=== PATIENT | female | born 1945 | race Caucasian/White ===

== ENCOUNTER 2019-04-23 12:06 | Inpatient (IN) ==
[2019-04-23] MEDS ORDERED: 0.9 % SODIUM CHLORIDE 1,000 ML IV ONE (12:11)
--- NOTE | 2019-04-23 12:22 | Emergency Department Note ---
Nausea/Vomiting/Diarrhea HPI - General Chief complaint: Nausea/Vomiting/Diarrhea Stated complaint: nausea, vomitting Time Seen by Provider: 04/23/19 12:19 Source: patient Mode of arrival: wheelchair Limitations: no limitations - History of Present Illness HPI Narrative: 74-year-old female patient presents to emergency department via POV with chief complaint of profuse nausea, vomiting, and diarrhea 5 days. She denies any hematemesis or hematochezia. She describes her bowel movements is watery/slight brown. She denies any other sick contacts at home. She denies ingesting any bowel or suspicious foods. She denies considerable abdominal pain/cramping. 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 She contacted her medical clinic and they referred her to the emergency department for evaluation. She denies any fever, sweats, chills. She admits to mild runny nose but denies cough or sinus congestion. She denies overt shortness of breath. She admits to orthopnea and uses a wedge to sleep. She denies retrosternal crushing chest pain or palpitations. She denies any focal weakness. She admits to bilateral lower extremity tenderness that has been ongoing since an injury several months ago. - Related Data Home Medications Medication Instructions Recorded Confirmed Insulin Glargine,Hum.rec.anlog 1 unit SQ DAILY 01/31/19 01/31/19 [Lantus Solostar] Insulin Lispro [HumaLOG] 1 unit SQ DAILY 01/31/19 01/31/19 Potassium Chloride [Kdur] 10 meq PO DAILY 01/31/19 01/31/19 Pramipexole Di-HCl [Mirapex] 0.25 mg PO DAILY 01/31/19 01/31/19 Spironolactone [Aldactone] 50 mg PO DAILY 01/31/19 01/31/19 Torsemide [Demadex] 20 mg PO DAILY 01/31/19 01/31/19 Warfarin [Coumadin] 5 mg PO DAILY 01/31/19 01/31/19 Allergies Allergy/AdvReac Type Severity Reaction Status Date / Time pregabalin [From LYRICA] Allergy Severe COULDN'T Verified 01/31/19 14:37 FUNCTION Amoxicillin Allergy Intermediate Verified 01/31/19 14:38 gabapentin [From Neurontin] AdvReac Intermediate Verified 01/31/19 14:38 codeine AdvReac Unknown Nausea Verified 01/31/19 14:37 epinephrine AdvReac Unknown Hypertensio Verified 01/31/19 14:37 n furosemide [From LASIX] AdvReac Unknown DEPLETES Verified 01/31/19 14:37 KCL VERY FAST, EVEN WITH SUPPLEMENTS Review of Systems All systems ED: reviewed and negative except as stated. Past Medical History - Past Medical History Medical history: Reports: atrial fibrillation, CHF - Social History smoking status: Never smoker Physical Exam Limitations: no limitations General appearance: alert, in no apparent distress Head: atraumatic Eye: Present: normal appearance, PERRL, EOMI. Absent: scleral icterus, co njunctival injection ENT: Present: normal oropharynx, mucous membranes moist Neck: Present: trachea midline. Absent: lymphadenopathy, thyromegaly Respiratory: Present: normal lung sounds bilaterally. Absent: respiratory dis tress, wheezes, stridor, accessory muscle use, prolonged expiratory phase Cardiovascular: Present: regular rate, normal rhythm. Absent: systolic murmur, diastolic murmur Abdominal: Present: soft, hyperactive bowel sounds (to the right lower quadrant ). Absent: distention, tenderness, guarding, rebound, rigidity, organomegaly, mass Extremities: Present: tenderness (chest bilateral.). Absent: pedal edema, pretibial edema, calf tenderness Neurological: Present: alert, oriented X3 Psychiatric: Present: normal affect, normal mood Skin: Present: warm, dry Course Course Narrative: Patient was brought into the emergency department and a history of physical exam was performed. IV was established and laboratory studies were drawn. Normal saline was started at 128 mL/hour. A review of her laboratory studies show the following: CBC monocyte percent elevated 16.6, monocyte #1.8, all others the normal limits. CMP CO2 critically low at 10, sodium 130, anion gap elevated at 21, BUN 76, creatinine 3.5, GFR calculated at 12, blood sugar 126, all other normal limits. Troponin 0.03. ProBNP 2768. I discussed the case briefly with my collaborative physician (Dr. Romo) at this time he recommended additional laboratory studies. We will order a lactic acid level, urine for culture, stool for fecal leukocytes, chest x-ray, and beta hydroxybutyrate. Upon reevaluation patient says she is feeling about the same. She complains of some mild discomfort to her left upper abdomen. She has not vomited or had an episode of diarrhea since being in the emergency department. Additional laboratory studies were reviewed showing the following: Beta hydroxybutyrate 0.12. Lactic acid 1.3. Chest x-ray read as normal. Fecal leukocytes as showing rare WBC. Predominant polys. With the patient's low CO2 level and likely metabolic acidosis secondary to vomiting and diarrhea it seems prudent that she be admitted to the hospital for further evaluation and management. I reached out to the hospitalist service (Dr. Bowden) about the patient's condition. At this time he has accepted the patient. She remained hemodynamically stable throughout her entire time in the emergency department as being transferred to floor in good condition. All treatment decisions and orders will be carried out by Dr. Bowden moving forward. Vital Signs Temperature 97.3 F 04/23/19 12:06 Pulse Rate 81 04/23/19 12:06 Respiratory Rate 18 04/23/19 12:06 Blood Pressure 106/78 04/23/19 12:06 Pulse Oximetry (%) 96 04/23/19 12:06 Temperature 97.3 F 04/23/19 12:06 Pulse Rate 70 04/23/19 18:17 Respiratory Rate 17 04/23/19 18:17 Blood Pressure 144/65 04/23/19 18:17 Pulse Oximetry (%) 96 04/23/19 18:17 Nausea/Vomiting/Diarrhea - Lab Data Lab results reviewed: Yes I reviewed the patient's lab results. Result diagrams: 04/23/19 12:20 04/23/19 12:20 Lab Results 04/23/19 04/23/19 04/23/19 Range/Units 12:20 12:20 12:20 WBC 11.0 (4.5-11.0) K/mcL RBC 4.48 (4.00-5.20) M/mcL Hgb 13.2 (12.0-15.0) g/dL Hct 40.0 (36.0-48.0) % MCV 89.2 (80.0-100.0) fL MCH 29.5 (26.0-34.0) pg MCHC 33.1 (31.0-36.0) g/dL RDW 14.0 (11.5-14.5) % Plt Count 233 (140-440) K/mcL MPV 8.3 (7.4-10.4) fL Gran % 67.0 (38.0-78.0) % Lymph % (Auto) 16.2 (15.5-49.0) % [place] % (Auto) 16.6 H (1.0-12.0) % Eos % (Auto) 0 (0.0-7.0) % Baso % (Auto) 0.2 (0.0-2.0) % Gran # 7.4 (1.8-8.0) K/mcL Lymph # (Auto) 1.8 (1.5-4.8) K/mcL [place] # (Auto) 1.8 H (0.1-0.9) K/mcL Eos # (Auto) 0 (0.0-0.7) K/mcL Baso # (Auto) 0 (0.0-0.3) K/mcL VBG Lactic Acid (0.5-2.0) mmol/L Sodium 130 L (133-145) mmol/L Potassium 4.7 (3.3-5.1) mmol/L Chloride 99 (96-108) mmol/L Carbon Dioxide 10 L* (22-30) mmol/L Anion Gap 21.0 H (8-16) BUN 76 H (8-23) mg/dl Creatinine 3.5 H (0.6-1.1) mg/dl GFR Calculation 12 Glucose 126 H (70-105) mg/dL Calcium 8.6 (8.6-10.4) mg/dl Total Bilirubin 0.3 (0.0-1.0) mg/dL AST 16 (0-37) U/l ALT 19 (0-40) U/l Alkaline Phosphatase 68 (39-117) U/L Troponin T 0.03 (0-0.03) ng/ml NT-Pro-B Natriuret Pep 2768.0 H (0-450) pg/ml Total Protein 7.2 (5.9-8.4) gm/dL Albumin 4.1 (3.2-5.2) gm/dL Globulin 3.1 (2.2-3.7) gm/dL Albumin/Globulin Ratio 1.3 (1.0-2.3) Beta-Hydroxybutyrate (< 0.27) mmol/L Urine Color Urine Appearance Urine pH (5.0-9.0) Ur Specific [place] (1.000-1.035) Urine Protein (NEG) mg/dL Urine Glucose (UA) (NEG) mg/dL Urine Ketones (NEG) mg/dL Urine Occult Blood (<0.03) mg/dL Urine Nitrate (NEG) Urine Bilirubin (NEG) mg/dL Urine Urobilinogen (NEG) mg/dL Ur Leukocyte Esterase (NEG) /uL Urine RBC (0-1) /hpf Urine WBC (0-4) /hpf Ur Squamous Epith Cells (0-4) /hpf Ur Transition Epith Cell (0-2) /hpf Amorphous Crystals (0) /hpf Urine Bacteria (0) /hpf Urine Mucus (0) /hpf Ur Culture Indicated? Stool Occult Blood Stool Occult Bld Immuno (NEGATIVE) Stool Occult Blood #2 Stool Occult Blood #3 04/23/19 04/23/19 04/23/19 Range/Units 13:47 13:47 14:15 WBC (4.5-11.0) K/mcL RBC (4.00-5.20) M/mcL Hgb (12.0-15.0) g/dL Hct (36.0-48.0) % MCV (80.0-100.0) fL MCH (26.0-34.0) pg MCHC (31.0-36.0) g/dL RDW (11.5-14.5) % Plt Count (140-440) K/mcL MPV (7.4-10.4) fL Gran % (38.0-78.0) % Lymph % (Auto) (15.5-49.0) % [place] % (Auto) (1.0-12.0) % Eos % (Auto) (0.0-7.0) % Baso % (Auto) (0.0-2.0) % Gran # (1.8-8.0) K/mcL Lymph # (Auto) (1.5-4.8) K/mcL [place] # (Auto) (0.1-0.9) K/mcL Eos # (Auto) (0.0-0.7) K/mcL Baso # (Auto) (0.0-0.3) K/mcL VBG Lactic Acid 1.3 (0.5-2.0) mmol/L Sodium (133-145) mmol/L Potassium (3.3-5.1) mmol/L Chloride (96-108) mmol/L Carbon Dioxide (22-30) mmol/L Anion Gap (8-16) BUN (8-23) mg/dl Creatinine (0.6-1.1) mg/dl GFR Calculation Glucose (70-105) mg/dL Calcium (8.6-10.4) mg/dl Total Bilirubin (0.0-1.0) mg/dL AST (0-37) U/l ALT (0-40) U/l Alkaline Phosphatase (39-117) U/L Troponin T (0-0.03) ng/ml NT-Pro-B Natriuret Pep (0-450) pg/ml Total Protein (5.9-8.4) gm/dL Albumin (3.2-5.2) gm/dL Globulin (2.2-3.7) gm/dL Albumin/Globulin Ratio (1.0-2.3) Beta-Hydroxybutyrate 0.12 (< 0.27) mmol/L Urine Color Yellow Urine Appearance Hazy Urine pH 5.0 (5.0-9.0) Ur Specific [place] 1.016 (1.000-1.035) Urine Protein 30 A (NEG) mg/dL Urine Glucose (UA) Negative (NEG) mg/dL Urine Ketones Neg (NEG) mg/dL Urine Occult Blood Neg (<0.03) mg/dL Urine Nitrate Neg (NEG) Urine Bilirubin Neg (NEG) mg/dL Urine Urobilinogen Neg (NEG) mg/dL Ur Leukocyte Esterase 25 A (NEG) /uL Urine RBC 2 H (0-1) /hpf Urine WBC 3 (0-4) /hpf Ur Squamous Epith Cells 1 (0-4) /hpf Ur Transition Epith Cell < 1 (0-2) /hpf Amorphous Crystals Few A (0) /hpf Urine Bacteria 0 (0) /hpf Urine Mucus Few (0) /hpf Ur Culture Indicated? Stool Occult Blood Stool Occult Bld Immuno (NEGATIVE) Stool Occult Blood #2 Stool Occult Blood #3 04/23/19 04/23/19 Range/Units 15:17 15:25 WBC (4.5-11.0) K/mcL RBC (4.00-5.20) M/mcL Hgb (12.0-15.0) g/dL Hct (36.0-48.0) % MCV (80.0-100.0) fL MCH (26.0-34.0) pg MCHC (31.0-36.0) g/dL RDW (11.5-14.5) % Plt Count (140-440) K/mcL MPV (7.4-10.4) fL Gran % (38.0-78.0) % Lymph % (Auto) (15.5-49.0) % [place] % (Auto) (1.0-12.0) % Eos % (Auto) (0.0-7.0) % Baso % (Auto) (0.0-2.0) % Gran # (1.8-8.0) K/mcL Lymph # (Auto) (1.5-4.8) K/mcL [place] # (Auto) (0.1-0.9) K/mcL Eos # (Auto) (0.0-0.7) K/mcL Baso # (Auto) (0.0-0.3) K/mcL VBG Lactic Acid (0.5-2.0) mmol/L Sodium (133-145) mmol/L Potassium (3.3-5.1) mmol/L Chloride (96-108) mmol/L Carbon Dioxide (22-30) mmol/L Anion Gap (8-16) BUN (8-23) mg/dl Creatinine (0.6-1.1) mg/dl GFR Calculation Glucose (70-105) mg/dL Calcium (8.6-10.4) mg/dl Total Bilirubin (0.0-1.0) mg/dL AST (0-37) U/l ALT (0-40) U/l Alkaline Phosphatase (39-117) U/L Troponin T (0-0.03) ng/ml NT-Pro-B Natriuret Pep (0-450) pg/ml Total Protein (5.9-8.4) gm/dL Albumin (3.2-5.2) gm/dL Globulin (2.2-3.7) gm/dL Albumin/Globulin Ratio (1.0-2.3) Beta-Hydroxybutyrate (< 0.27) mmol/L Urine Color Urine Appearance Urine pH (5.0-9.0) Ur Specific [place] (1.000-1.035) Urine Protein (NEG) mg/dL Urine Glucose (UA) (NEG) mg/dL Urine Ketones (NEG) mg/dL Urine Occult Blood (<0.03) mg/dL Urine Nitrate (NEG) Urine Bilirubin (NEG) mg/dL Urine Urobilinogen (NEG) mg/dL Ur Leukocyte Esterase (NEG) /uL Urine RBC (0-1) /hpf Urine WBC (0-4) /hpf Ur Squamous Epith Cells (0-4) /hpf Ur Transition Epith Cell (0-2) /hpf Amorphous Crystals (0) /hpf Urine Bacteria (0) /hpf Urine Mucus (0) /hpf Ur Culture Indicated? Stool Occult Blood TNP Stool Occult Bld Immuno Positive A (NEGATIVE) Stool Occult Blood #2 TNP Stool Occult Blood #3 TNP - Radiology Data Radiology results reviewed: Yes I reviewed the patient's radiology results. Ordering Physician: Giovanni Contreras PA-C Date of Service: 04/23/19 Procedure(s): XR chest 2V Accession Number(s): [id number] HISTORY: Weakness, nausea and vomiting FINDINGS: The lungs are clear and normally expanded. The heart size and pulmonary vasculature are normal. The mediastinum, telma and pleura are normal. No free intra-abdominal air is present. There has been no significant change since 04/04/09. IMPRESSION: Normal chest. Interpreted and Authenticated by: Jose Vegas 04/23/19 - EKG Data EKG attestation: Yes I reviewed and interpreted this EKG. EKG results narrative: Twelve-lead EKG obtained showing atrial fibrillation at a rate of 70 bpm. No ectopy and no ST segment changes. This is unchanged from previous EKG performed 2 years ago. Disposition Pt seen by QUAHOGGER/PA only: Yes Clinical Impression: Metabolic acidosis Type 2 diabetes mellitus Qualifiers: Diabetes mellitus detention insulin use: with detention use Diabetes mellitus complication status: with hyperglycemia Qualified Code(s): E11.65 - Type 2 diabetes mellitus with hyperglycemia; Z79.4 - assisted (current) use of insulin CHF (congestive heart failure) Qualifiers: Heart failure type: unspecified Heart failure chronicity: chronic Qualified Code(s): I50.9 - Heart failure, unspecified Disposition: Xfer As Inpt ([facility]) Condition: Fair Additional Instructions: Patient is being admitted to the hospital through the hospitalist service. All treatment decisions and orders will be carried out by Dr. Bowden (hospitalist). Referrals: Osmar Garcia MD [Primary Care Provider] - Time of Disposition: 18:32
[2019-04-23] MEDS ORDERED: ONDANSETRON 4 MG/2 ML VIAL IV ONE (12:34)
[2019-04-23 12:53] LABS: Basophils # (Auto) 0 K/mcL (0.0-0.3); Basophils % (Auto) 0.2 % (0.0-2.0); Eosinophils # (Auto) 0 K/mcL (0.0-0.7); Eosinophils % (Auto) 0 % (0.0-7.0); Hemoglobin 13.2 g/dL (12.0-15.0); Lymphocytes # (Auto) 1.8 K/mcL (1.5-4.8); Lymphocytes % (Auto) 16.2 % (15.5-49.0); Mean Cell Volume 89.2 fL (80.0-100.0); Mean Corpuscular HGB Conc 33.1 g/dL (31.0-36.0); Mean Platelet Volume 8.3 fL (7.4-10.4); Monocytes # (Auto) 1.8 K/mcL (0.1-0.9); Monocytes % (Auto) 16.6 % (1.0-12.0); Platelet Count 233 K/mcL (140-440); RBC 4.48 M/mcL (4.00-5.20)
[2019-04-23 13:21] LABS: ALT/SGPT 19 U/l (0-40); AST/SGOT 16 U/l (0-37); Albumin 4.1 gm/dL (3.2-5.2); Albumin/Globulin Ratio 1.3 (1.0-2.3); Alkaline Phosphatase 68 U/L (39-117); Bilirubin,Total 0.3 mg/dL (0.0-1.0); Blood Urea Nitrogen 76 mg/dl (8-23); Calcium 8.6 mg/dl (8.6-10.4); Carbon Dioxide 10 mmol/L (22-30); Chloride 99 mmol/L (96-108); Globulin 3.1 gm/dL (2.2-3.7); Glomerular Filtration Rate 12; Glucose 126 mg/dL (70-105)
--- NOTE | 2019-04-23 14:05 | XRay Report ---
HISTORY: Weakness, nausea and vomiting FINDINGS: The lungs are clear and normally expanded. The heart size and pulmonary vasculature are normal. The mediastinum, telma and pleura are normal. No free intra-abdominal air is present. There has been no significant change since 04/04/09. IMPRESSION: Normal chest. Interpreted and Authenticated by: Jose Vegas 04/23/19
[2019-04-23 14:57] LABS: Appearance,Urine HAZY; Bacteria,Urine 0 /hpf (0); Bilirubin,Urine NEG (NEG); Color,Urine YELLOW; Glucose,Urine (UA) NEGATIVE (NEG); Ketones,Urine NEG (NEG); Leukocyte Esterase,Urine 25 /uL (NEG); Mucus,Urine FEW /hpf (0); Nitrate,Urine NEG (NEG); Protein,Urine 30 mg/dL (NEG); Specific Gravity,Urine 1.016 (1.000-1.035); Urine Amorphous Crystals FEW /hpf (0); Urine Blood NEG mg/dL (<0.03); Urine RBC 2 /hpf (0-1); Urine Squamous Epithelial Cell 1 /hpf (0-4); Urine Transitional Epi Cells < 1 /hpf (0-2); Urine WBC 3 /hpf (0-4); Urobilinogen,Urine NEG (NEG)
--- NOTE | 2019-04-23 18:30 | Internal Med History&Physical ---
Medical - H&P: [facility] Patient information: Note initiated : 04/23/19 at 6:26 pm Service Date, if different from initiated Date: [] Patient: Jo-Ann iMllan a 74 y/o F admitted on for Nausea, Vomitting. Chief Complaint: [] Chief complaint: Diarrhea and nausea and weakness History of present illness: Ms. Millan is a 74 year old F with a history of atrial fibrillation/diabetes and hypertension who presents to the ER with 5 days onset of profuse watery diarrhea without associated cramps, fever or blood. Patient denies any precipitating events or sick contacts. Over the last 3 days she has had multiple stools over 15-20 a day. She has become extremely weak and unable to function. With increasing concern she was brought in to [facility] ER. Initial work-up was consistent with severe anion gap acidosis/hyponatremia and volume depletion, elevated creatinine at 3.5. After initial resuscitation hospitalist service was consulted. At the time of evaluation patient is alert and oriented. She was able to answer most of the questions. She denies changes in medication, consumption of uncooked meat or seafood. She further denies recent or prior episodes of similar symptoms or history of inflammatory bowel disease. She also denies antibiotic use. Review of systems 10 point review of system was performed and is negative except for one discussed above Medical - H&P: PMH Medical history: Atrial fibrillation History of hypertension Diastolic CHF Neuropathy Restless leg syndrome DM type II Hypertension Anticoagulation on Coumadin Pertinent family history: Nonsignificant Smoking status: Never smoker Have you smoked in the last 12 months: No Drug use: none Alcohol use: none Medical - H&P: Meds Home Medications Medication Instructions Recorded Confirmed Type Insulin Glargine,Hum.rec.anlog 25 unit SQ HS 01/31/19 04/23/19 History [Lantus Solostar] Insulin Lispro [HumaLOG] 1 unit SQ DAILY 01/31/19 04/23/19 History Potassium Chloride [Kdur] 20 meq PO DAILY 01/31/19 04/23/19 History Pramipexole Di-HCl [Mirapex] 0.5 mg PO HS 01/31/19 04/23/19 History Spironolactone [Aldactone] 50 mg PO QID 01/31/19 04/23/19 History Torsemide [Demadex] 20 mg PO BID 01/31/19 04/23/19 History Warfarin [Coumadin] 5 mg PO DAILY 01/31/19 04/23/19 History Calcium Gluconate 500 mg PO BID 04/23/19 04/23/19 History Carvedilol [Coreg] 50 mg PO DAILY 04/23/19 04/23/19 History Digoxin [Lanoxin] 125 mcg PO MOWEFR 04/23/19 04/23/19 History Insulin Glargine, Human [Lantus] 44 units SUB-Q AC 04/23/19 04/23/19 History Multivit-Min/Folic Acid/Biotin 1 tab PO DAILY 04/23/19 04/23/19 History [Women Multivit W-Biotin Gummy] Nitroglycerin [Nitrostat] 0.4 mg SL Q5M PRN 04/23/19 04/23/19 History Nystatin [Kenalog] 1 dose TOPICAL BID 04/23/19 04/23/19 History [place]-3/Dha/Epa/Fish Oil [[facility] Fish 1 each PO BID 04/23/19 04/23/19 History Oil 1,000 mg Softgel] Omeprazole 40 mg PO BID 04/23/19 04/23/19 History Pramipexole Di-HCl [Pramipexole 0.5 mg PO HS 04/23/19 04/23/19 History Dihydrochloride] Sertraline HCl [Zoloft] 25 mg PO HS 04/23/19 04/23/19 History Thyroid,Pork [[place] Thyroid] 90 mg PO DAILY 04/23/19 04/23/19 History amLODIPine BESYLATE [Amlodipine 5 mg PO DAILY 04/23/19 04/23/19 History Besylate] traMADol HCL [Ultram] 50 mg PO QID PRN 04/23/19 04/23/19 History Allergies Allergy/AdvReac Type Severity Reaction Status Date / Time Amoxicillin Allergy Unknown Unknown Verified 04/23/19 20:21 pregabalin [From LYRICA] AdvReac Intermediate COULDN'T Verified 04/23/19 20:20 FUNCTION codeine AdvReac Mild Nausea Verified 04/23/19 20:20 furosemide [From LASIX] AdvReac Mild DEPLETES Verified 04/23/19 20:20 KCL VERY FAST, EVEN WITH SUPPLEMENTS gabapentin [From Neurontin] AdvReac Mild CAN'T TALK Verified 04/23/19 20:20 Medical - H&P: Exam - Constitutional Vitals: Temp Pulse Resp BP Pulse Ox 97.3 F 70 17 144/65 96 04/23/19 12:06 04/23/19 18:17 04/23/19 18:17 04/23/19 18:17 04/23/19 18:17 General appearance: no acute distress Exam: Alert oriented Head normocephalic Oral cavity dry Eye movement symmetrical No ear nose discharge Neck no lymphadenopathy S1-S2 irregular rhythm, no murmur Diminished breath sounds bases Abdomen soft hyperactive bowel sounds lower extremity no cyanosis clubbing no joint swelling Skin no suspicious lesion Psych alert cooperative Neuro nonfocal Medical - H&P: Reslt - Labs CBC & Chem 7: 04/23/19 12:20 04/23/19 12:20 Labs: Short CBC 04/23/19 Range/Units 12:20 WBC 11.0 (4.5-11.0) K/mcL Hgb 13.2 (12.0-15.0) g/dL Hct 40.0 (36.0-48.0) % Plt Count 233 (140-440) K/mcL BMP 04/23/19 12:20 Sodium 130 L Potassium 4.7 Chloride 99 Carbon Dioxide 10 L* BUN 76 H Creatinine 3.5 H Glucose 126 H Calcium 8.6 Cardiac Enzymes 04/23/19 Range/Units 12:20 Troponin T 0.03 (0-0.03) ng/ml Liver Function 04/23/19 Range/Units 12:20 Total Bilirubin 0.3 (0.0-1.0) mg/dL AST 16 (0-37) U/l ALT 19 (0-40) U/l Alkaline Phosphatase 68 (39-117) U/L Albumin 4.1 (3.2-5.2) gm/dL Urine 04/23/19 Range/Units 14:15 Urine Color Yellow Urine Appearance Hazy Urine pH 5.0 (5.0-9.0) Ur Specific [place] 1.016 (1.000-1.035) Urine Protein 30 A (NEG) mg/dL Urine Glucose (UA) Negative (NEG) mg/dL Medical - H&P: A/P (1) Volume depletion, gastrointestinal loss Current visit: Yes Status: Acute * Severe diarrhea with volume depletion-continue crystalloid/supportive management. Stool studies awaited. Likely infectious * Acute on chronic renal failure secondary to volume depletion-creatinine 3.5, baseline creatinine 2.5. Continue renal function monitoring/crystalloids * Anion gap acidosis secondary to diarrhea and bicarbonate loss with volume dep letion * History of atrial fibrillation currently rate controlled * Atrial fibrillation continue digoxin/beta-yanely * Anticoagulation continue Coumadin * Hyponatremia secondary to solute loss from diarrhea/spironolactone * History of hypertension-hold antihypertensive until patient stabilizes * DM type II continue basal prandial insulin * Restless leg syndrome continue Mirapex * Anxiety disorder continue sertraline * Full code * Prophylaxis anticoagulation on Coumadin Plan * Inpatient admission * Crystalloid/supportive management * Stool studies * Monitor renal function * Pre-existing medical condition management on home meds * PT OT nutrition support
[2019-04-23] MEDS ORDERED: ONDANSETRON 4 MG/2 ML VIAL IV PRN (19:55)
[2019-04-23] MEDS ORDERED: MAGNESIUM SULFATE 2 GM/50 ML BAG IV PRN (19:55)
[2019-04-23] MEDS ORDERED: ACETAMINOPHEN 325 MG TABLET PO PRN (19:55)
[2019-04-23] MEDS ORDERED: ACETAMINOPHEN 1,000 MG/100 ML BOTTLE IV PRN (19:55)
[2019-04-23] MEDS ORDERED: POTASSIUM CHLORIDE 20 MEQ PACKET PO PRN (19:55)
[2019-04-23] MEDS: LACTATED RINGERS 1,000 ML IV SCH (20:16)
[2019-04-23 20:51] LABS: Prothrombin Time 22.5 sec (11.9-14.5)
[2019-04-23] MEDS: 0.9 % SODIUM CHLORIDE 10 ML SYRINGE IV SCH (21:49)
[2019-04-23] MEDS: traZODone HCL 50 MG TABLET PO PRN (21:58)
[2019-04-23] MEDS: CYANOCOBALAMIN (VITAMIN B-12) 500 MCG TABLET PO SCH (21:58)
[2019-04-23] MEDS ORDERED: NITROGLYCERIN 0.4 MG TAB.SUBL SL PRN (22:21)
[2019-04-23] MEDS ORDERED: traMADol 50 MG TABLET PO PRN (22:21)
[2019-04-23] MEDS ORDERED: DIGOXIN 125 MCG TABLET PO SCH (22:30)
[2019-04-23] MEDS ORDERED: DIGOXIN 125 MCG TABLET ONE (22:57)
[2019-04-24 06:01] LABS: INR 2.2 (0.9-1.1); Prothrombin Time 24.6 sec (11.9-14.5)
[2019-04-24 06:03] LABS: Hematocrit 34.6 % (36.0-48.0); Hemoglobin 11.6 g/dL (12.0-15.0); Mean Cell Volume 90.2 fL (80.0-100.0); Mean Corpuscular HGB Conc 33.4 g/dL (31.0-36.0); Mean Platelet Volume 8.3 fL (7.4-10.4); Platelet Count 190 K/mcL (140-440); RBC 3.84 M/mcL (4.00-5.20); Red Cell Distribution Width 14.3 % (11.5-14.5); WBC 6.7 K/mcL (4.5-11.0)
[2019-04-24] MEDS: 0.9 % SODIUM CHLORIDE 10 ML SYRINGE IV SCH ×4 (06:10→21:19)
[2019-04-24] MEDS: LACTATED RINGERS 1,000 ML IV SCH ×2 (06:19→17:06)
[2019-04-24 06:30] LABS: ALT/SGPT 15 U/l (0-40); AST/SGOT 14 U/l (0-37); Albumin 3.5 gm/dL (3.2-5.2); Albumin/Globulin Ratio 1.4 (1.0-2.3); Alkaline Phosphatase 55 U/L (39-117); Bilirubin,Direct < 0.2 mg/dL (0.0-0.3); Bilirubin,Total 0.3 mg/dL (0.0-1.0); Blood Urea Nitrogen 73 mg/dl (8-23); Calcium 8.1 mg/dl (8.6-10.4); Carbon Dioxide 12 mmol/L (22-30); Chloride 103 mmol/L (96-108); Globulin 2.5 gm/dL (2.2-3.7); Glomerular Filtration Rate 13; Glucose 77 mg/dL (70-105); Lactate Dehydrogenase 177 U/L (94-250); Phosphorous 4.6 mg/dL (2.7-4.5); Triglycerides 230 mg/dl (<150); Uric Acid 8.8 mg/dL (2.5-8.0)
[2019-04-24 06:49] LABS: Band Neutrophils % 24 % (0-10); Eosinophils % (Manual) 1 % (0-7); Lymphocytes % 23 % (15-49); Monocytes % (Manual) 17 % (1-12); Platelet Estimate NORMAL (NORMAL); RBC Morphology NORMAL (NORMAL); Segmented Neutrophils % 35 % (38-78)
[2019-04-24] MEDS: OMEPRAZOLE 20 MG CAPSULE PO SCH ×2 (08:11→17:06)
[2019-04-24] MEDS: CARVEDILOL 12.5 MG TABLET PO SCH ×2 (08:11→17:06)
[2019-04-24] MEDS: INSULIN LISPRO 1 UNIT/0.01 ML UNIT SQ SCH ×4 (08:20→20:53)
[2019-04-24] MEDS: THYROID, PORK 60 MG TABLET PO SCH (08:26)
[2019-04-24] MEDS: POTASSIUM CHLORIDE 10 MEQ TABLET PO SCH (10:06)
[2019-04-24] MEDS: CYANOCOBALAMIN (VITAMIN B-12) 500 MCG TABLET PO SCH ×2 (10:07→20:52)
[2019-04-24] MEDS: MULTIVIT,THER IRON,CA,FA & MIN 1 TABLET PO SCH (10:07)
[2019-04-24] MEDS: amLODIPine 5 MG TABLET PO SCH (10:07)
[2019-04-24] MEDS: THIAMINE 100 MG TABLET PO SCH (10:07)
[2019-04-24] MEDS: FOLIC ACID 1 MG TABLET PO SCH (10:07)
--- NOTE | 2019-04-24 11:02 | Internal Med Progress Note ---
Medical - PN: Subj Patient information: Note initiated : 04/24/19 at 10:58 am Service Date, if different from initiated Date: [] Patient: Jo-Ann Millan a 74 y/o F admitted on 04/23/19 for Nausea, Vomitting. Chief Complaint: [] Interval history: Ms. Millan is a 74 year old F with a history of atrial fibrillation/diabetes and hypertension who presents to the ER with 5 days onset of profuse watery diarrhea without associated cramps, fever or blood. Patient denies any precipitating events or sick contacts. Over the last 3 days she has had multiple stools over 15-20 a day. She has become extremely weak and unable to function. With increasing concern she was brought in to [facility] ER. Initial work-up was consistent with severe anion gap acidosis/hyponatremia and volume depletion, elevated creatinine at 3.5. After initial resuscitation hospitalist service was consulted. At the time of evaluation patient is alert and oriented. She was able to answer most of the questions. She denies changes in medication, consumption of uncooked meat or seafood. She further denies recent or prior episodes of similar symptoms or history of inflammatory bowel disease. She also denies antibiotic use. 04/24-patient remarkably better. Improvement in diarrhea. No abdominal pain fever overnight hemodynamic stability. Improving renal function. White count downtrending with 24% bands. INR 2.2 on Coumadin. Telemetry atrial fibrillation rate controlled. Multiple family members at bedside. Discussed treatment plan with patient and family. Stools more formed. Sodium 132, CO2 improved to 12 with downtrending anion gap. Creatinine downtrending from 3.5- 3.2. - Constitutional Vitals: Vital Signs Temp Pulse Resp BP Pulse Ox 97.4 F 70 18 140/76 97 04/24/19 07:53 04/24/19 07:53 04/24/19 07:53 04/24/19 07:53 04/24/19 07:53 Period Temp Pulse Resp BP Sys/[place] Pulse Ox Last 24 Hr 97.3 F-98.0 F 65-92 16-25 106-161/46-105 92-98 Intake and Output 04/23/19 04/24/19 04/24/19 21:59 05:59 13:59 Intake Total 4584 895 5344 Output Total 100 325 650 Balance 900 -45 350 Weight 190 lb 8 oz Intake & Output: Intake & Output 04/23/19 04/24/19 04/24/19 21:59 05:59 13:59 Intake Total 1741 222 1603 Output Total 100 325 650 Balance 900 -45 350 Weight 190 lb 8 oz Intake: IV 1000 1000 Sodium Chloride 0.9% 1,000 ml @ 1000 Wide Open IV BOLUS ONE Rx#: [id number] Lactated Ringers 1,000 ml @ 100 1000 mls/hr IV .Q10H [facility] Rx#: [id number] Oral 280 Output: Void Amount 100 650 Urine/Stool Mix 325 Other: Urine Appearance Clear Clear Urine Color Bright Yellow Dark Yellow Urine Odor Normal Stool Size Small Small Stool Color Brown Yellow Stool Consistency Liquid General appearance: no acute distress Exam: Alert oriented Nonlabored breathing No anxiety Nontender nondistended abdomen Pallor Medical - PN: Obj Da - Labs CBC & Chem 7: 04/24/19 03:50 04/24/19 03:50 Labs: Abnormal Lab Results 04/24/19 04/24/19 04/24/19 03:50 03:50 03:50 RBC 3.84 L Hgb 11.6 L Hct 34.6 L [place] % (Auto) [place] # (Auto) Seg Neutrophils % 35 L Band Neutrophils % 24 H Monocytes % (Manual) 17 H PT 24.6 H INR 2.2 H Sodium 132 L Carbon Dioxide 12 L Anion Gap 17.0 H BUN 73 H Creatinine 3.2 H Glucose Uric Acid 8.8 H Calcium 8.1 L Phosphorus 4.6 H NT-Pro-B Natriuret Pep Triglycerides 230 H Urine Protein Ur Leukocyte Esterase Urine RBC Amorphous Crystals Stool Occult Bld Immuno 04/23/19 04/23/19 04/23/19 15:17 14:15 12:20 RBC Hgb Hct [place] % (Auto) [place] # (Auto) Seg Neutrophils % Band Neutrophils % Monocytes % (Manual) PT 22.5 H INR 2.0 H Sodium Carbon Dioxide Anion Gap BUN Creatinine Glucose Uric Acid Calcium Phosphorus NT-Pro-B Natriuret Pep Triglycerides Urine Protein 30 A Ur Leukocyte Esterase 25 A Urine RBC 2 H Amorphous Crystals Few A Stool Occult Bld Immuno Positive A 04/23/19 04/23/19 12:20 12:20 RBC Hgb Hct [place] % (Auto) 16.6 H [place] # (Auto) 1.8 H Seg Neutrophils % Band Neutrophils % Monocytes % (Manual) PT INR Sodium 130 L Carbon Dioxide 10 L* Anion Gap 21.0 H BUN 76 H Creatinine 3.5 H Glucose 126 H Uric Acid Calcium Phosphorus NT-Pro-B Natriuret Pep 2768.0 H Triglycerides Urine Protein Ur Leukocyte Esterase Urine RBC Amorphous Crystals Stool Occult Bld Immuno Meds: Medications Acetaminophen (Tylenol) 650 mg PO Q4-6HP PRN PRN Reason: PAIN/FEVER > 101 Amlodipine Besylate (Norvasc) 5 mg PO DAILY [facility] Last Admin: 04/24/19 10:07 Dose: 5 mg Documented by: [facility] Last Admin: 04/24/19 08:11 Dose: 25 mg Documented by: Cyanocobalamin (Vitamin B-12) 1,000 mcg PO BID [facility] Stop: 04/28/19 09:01 Last Admin: 04/24/19 10:07 Dose: 1,000 mcg Documented by: Diagnostic Test (Pha) (Accu-Chek) 1 each FS ACHS [facility] Last Admin: 04/24/19 08:20 Dose: 1 each Documented by: Digoxin (Lanoxin) 125 mcg PO MoWeFr@1400 [facility] Folic Acid (Folic Acid) 1 mg PO DAILY [facility] Last Admin: 04/24/19 10:07 Dose: 1 mg Documented by: Lactated Ringer's (Lactated Ringers) 1,000 mls @ 100 mls/hr IV .Q10H [facility] Stop: 04/25/19 01:54 Last Admin: 04/24/19 06:19 Dose: 100 mls/hr Documented by: Magnesium Sulfate (Magnesium Sulfate) 2 gm in 50 mls @ 50 mls/hr IV UD PRN PRN Reason: MG = or < 1.7 Acetaminophen (Ofirmev) 1,000 mg in 100 mls @ 200 mls/hr IV Q6HP PRN PRN Reason: PAIN/FEVER > 101 Insulin Glargine (Lantus) 25 unit SQ HS [facility] Insulin Glargine (Lantus) 44 unit SQ DAILY [facility] Insulin Human Lispro (Humalog) 0 unit SQ ACHS [facility]; Protocol Last Admin: 04/24/19 08:20 Dose: Not Given Documented by: Iron Carb/Multivit/[place]/Folic Acid (Multivitamin W/Minerals) 1 tab PO DAILY [facility] Last Admin: 04/24/19 10:07 Dose: 1 tab Documented by: Nitroglycerin (Nitrostat) 0.4 mg SL Q5M PRN PRN Reason: Chest Pain Omeprazole (Prilosec) 40 mg PO BIDAC [facility] Last Admin: 04/24/19 08:11 Dose: 40 mg Documented by: Ondansetron HCl (Zofran) 4 mg IV Q4-6HP PRN PRN Reason: Nausea And Vomiting Potassium Chloride (Klor-Con) 40 meq PO DAILYP PRN PRN Reason: K+ < 3.5 Potassium Chloride (Kdur) 20 meq PO QAMCC [facility] Last Admin: 04/24/19 10:06 Dose: 20 meq Documented by: Pramipexole Dihydrochloride (Mirapex) 0.5 mg PO HS [facility] Sertraline HCl (Zoloft) 25 mg PO HS [facility] Sodium Chloride (Saline Flush) 10 ml IV Q8 [facility] Last Admin: 04/24/19 06:10 Dose: Not Given Documented by: Thiamine HCl (Vitamin B1) 100 mg PO DAILY [facility] Last Admin: 04/24/19 10:07 Dose: 100 mg Documented by: Thyroid (Thyroid) 90 mg PO ACB [facility] Last Admin: 04/24/19 08:26 Dose: 90 mg Documented by: Tramadol HCl (Ultram) 50 mg PO QIDP PRN PRN Reason: Pain Trazodone HCl (Desyrel) 50 mg PO HSP PRN PRN Reason: Insomnia Last Admin: 04/23/19 21:58 Dose: 50 mg Documented by: Warfarin Sodium (Coumadin Per Pharmacy) 1 order PO UD [facility] Warfarin Sodium (Coumadin) 5 mg PO ONCE@1400 [facility] Stop: 04/24/19 14:01 Medical - PN: A/P - Time Spent With Patient Total time spent is greater than 50% in coordination of care (as documented) at patient's floor/unit and/or counseling patient: 25 - 35 minutes (1) Volume depletion, gastrointestinal loss Status: Acute Assessment and plan: * Severe diarrhea with volume depletion-clinical improvement noted on crystalloids/supportive management. Stooling frequency improved. Stool cultures negative so far * Acute on chronic renal failure secondary to volume depletion-creatinine improved 3.5->3.2 with crystalloids. Baseline creatinine 2.5. * Metabolic acidosis secondary to diarrhea related bicarbonate loss with volume depletion * Atrial fibrillation currently rate controlled. Anticoagulation on Coumadin, continue beta-yanely/digoxin * Hyponatremia secondary to solute loss from diarrhea/spironolactone. Improving at 132 * History of hypertension-hold antihypertensive until patient stabilizes * DM type II continue basal prandial insulin * Restless leg syndrome continue Mirapex * Anxiety disorder continue sertraline * Full code * Prophylaxis anticoagulation on Coumadin Plan * Continue supportive management. * Monitor renal function * Pre-existing medical condition management on home meds * PT OT nutrition support * Anticipate discharge in 48 hours contingent to clinical improvement. Current Visit: Yes Medical - PN: Qual - VTE Deep Vein Thrombosis/Pulmonary Embolism Present on Admission: No
[2019-04-24] MEDS: INSULIN GLARGINE, HUMAN 1 UNIT/0.01 ML SQ SCH (11:49)
[2019-04-24] MEDS ORDERED: WARFARIN 5 MG TABLET PO ONE (14:00)
[2019-04-24] MEDS: traZODone HCL 50 MG TABLET PO PRN (20:52)
[2019-04-24] MEDS ORDERED: SERTRALINE 50 MG TABLET PO SCH (21:00)
[2019-04-24] MEDS ORDERED: INSULIN GLARGINE, HUMAN 1 UNIT/0.01 ML SQ SCH (21:00)
[2019-04-24] MEDS ORDERED: PRAMIPEXOLE 0.25 MG TABLET PO SCH (21:00)
[2019-04-25] MEDS: 0.9 % SODIUM CHLORIDE 10 ML SYRINGE IV SCH ×3 (05:52→21:11)
[2019-04-25 06:07] LABS: Hematocrit 31.1 % (36.0-48.0); Hemoglobin 10.3 g/dL (12.0-15.0); Mean Cell Volume 90.5 fL (80.0-100.0); Mean Corpuscular HGB Conc 33.1 g/dL (31.0-36.0); Mean Platelet Volume 8.4 fL (7.4-10.4); Platelet Count 179 K/mcL (140-440); RBC 3.44 M/mcL (4.00-5.20); Red Cell Distribution Width 14.2 % (11.5-14.5); WBC 4.2 K/mcL (4.5-11.0)
[2019-04-25 06:16] LABS: INR 2.6 (0.9-1.1); Prothrombin Time 27.6 sec (11.9-14.5)
[2019-04-25 06:37] LABS: ALT/SGPT 14 U/l (0-40); AST/SGOT 14 U/l (0-37); Albumin 3.2 gm/dL (3.2-5.2); Albumin/Globulin Ratio 1.3 (1.0-2.3); Alkaline Phosphatase 49 U/L (39-117); Bilirubin,Direct < 0.2 mg/dL (0.0-0.3); Bilirubin,Total 0.3 mg/dL (0.0-1.0); Blood Urea Nitrogen 62 mg/dl (8-23); Calcium 7.8 mg/dl (8.6-10.4); Carbon Dioxide 15 mmol/L (22-30); Chloride 106 mmol/L (96-108); Globulin 2.4 gm/dL (2.2-3.7); Glomerular Filtration Rate 15; Glucose 94 mg/dL (70-105); Lactate Dehydrogenase 160 U/L (94-250); Phosphorous 2.8 mg/dL (2.7-4.5); Triglycerides 226 mg/dl (<150); Uric Acid 8.3 mg/dL (2.5-8.0)
[2019-04-25 07:19] LABS: Band Neutrophils % 6 % (0-10); Eosinophils % (Manual) 4 % (0-7); Hypochromasia FEW (NONE SEEN); Lymphocytes % 33 % (15-49); Monocytes % (Manual) 17 % (1-12); Platelet Estimate NORMAL (NORMAL); RBC Morphology ABNORM (NORMAL); Segmented Neutrophils % 40 % (38-78)
[2019-04-25] MEDS: CARVEDILOL 12.5 MG TABLET PO SCH ×2 (07:20→17:19)
[2019-04-25] MEDS: THYROID, PORK 60 MG TABLET PO SCH (07:20)
[2019-04-25] MEDS: OMEPRAZOLE 20 MG CAPSULE PO SCH ×2 (07:20→17:19)
[2019-04-25] MEDS: INSULIN LISPRO 1 UNIT/0.01 ML UNIT SQ SCH ×4 (07:33→21:20)
[2019-04-25] MEDS: amLODIPine 5 MG TABLET PO SCH (08:27)
[2019-04-25] MEDS: MULTIVIT,THER IRON,CA,FA & MIN 1 TABLET PO SCH (08:27)
[2019-04-25] MEDS: FOLIC ACID 1 MG TABLET PO SCH (08:27)
[2019-04-25] MEDS: POTASSIUM CHLORIDE 10 MEQ TABLET PO SCH (08:27)
[2019-04-25] MEDS: CYANOCOBALAMIN (VITAMIN B-12) 500 MCG TABLET PO SCH ×2 (08:27→21:06)
[2019-04-25] MEDS: THIAMINE 100 MG TABLET PO SCH (08:27)
[2019-04-25] MEDS: INSULIN GLARGINE, HUMAN 1 UNIT/0.01 ML SQ SCH (08:28)
[2019-04-25] MEDS ORDERED: WARFARIN 3 MG TABLET PO ONE (14:00)
[2019-04-25] MEDS ORDERED: NITROGLYCERIN 0.4 MG TAB.SUBL SL PRN (18:40)
[2019-04-25] MEDS ORDERED: traMADol 50 MG TABLET PO PRN (18:40)
[2019-04-25] MEDS ORDERED: ACETAMINOPHEN 325 MG TABLET PO PRN (18:40)
[2019-04-25] MEDS ORDERED: traZODone HCL 50 MG TABLET PO PRN (18:40)
[2019-04-25] MEDS ORDERED: ONDANSETRON 4 MG/2 ML VIAL IV PRN (18:40)
--- NOTE | 2019-04-25 19:39 | Internal Med Progress Note ---
Medical - PN: Subj Patient information: Note initiated : 04/25/19 at 7:36 pm Service Date, if different from initiated Date: [] Patient: Jo-Ann Millan a 74 y/o F admitted on 04/23/19 for Nausea, Vomitting. Chief Complaint: Follow-up diarrhea, renal failure, acidosis Interval history: Ms. Millan is a 74 year old F with a history of atrial fibrillation/diabetes and hypertension who presents to the ER with 5 days onset of profuse watery diarrhea without associated cramps, fever or blood. Patient denies any pr ecipitating events or sick contacts. Over the last 3 days she has had multiple stools over 15-20 a day. She has become extremely weak and unable to function. With increasing concern she was brought in to [facility] ER. Initial work-up was consistent with severe anion gap acidosis/hyponatremia and volume depletion, elevated creatinine at 3.5. After initial resuscitation hospitalist service was consulted. At the time of evaluation patient is alert and oriented. She was able to answer most of the questions. She denies changes in medication, consumption of uncooked meat or seafood. She further denies recent or prior episodes of similar symptoms or history of inflammatory bowel disease. She also denies antibiotic use. 04/24-patient remarkably better. Improvement in diarrhea. No abdominal pain fever overnight hemodynamic stability. Improving renal function. White count downtrending with 24% bands. INR 2.2 on Coumadin. Telemetry atrial fibrillation rate controlled. Multiple family members at bedside. Discussed treatment plan with patient and family. Stools more formed. Sodium 132, CO2 improved to 12 with downtrending anion gap. Creatinine downtrending from 3.5- 3.2. 9/1patient feeling much better. Very minimal nausea at the start of the meal, then resolves. Appetite is good. Diarrhea is improving. Creatinine down to 2.9. Anion gap is closed. Telemetry without significant alarms. - Constitutional Vitals: Vital Signs Temp Pulse Resp BP Pulse Ox 97.3 F 72 20 124/66 98 04/25/19 19:00 04/25/19 19:00 04/25/19 19:00 04/25/19 19:00 04/25/19 15:50 Period Temp Pulse Resp BP Sys/[place] Pulse Ox Last 24 Hr 97.1 F-98.1 F 52-72 16-20 124-151/66-76 95-98 Intake and Output 04/25/19 04/25/19 04/25/19 05:59 13:59 21:59 Intake Total 840 Output Total 925 600 500 Balance -925 240 -500 Weight 195 lb 6.4 oz Patient Weight 04/26/19 05:59 Weight 195 lb 6.4 oz Intake & Output: Intake & Output 04/25/19 04/25/19 04/25/19 05:59 13:59 21:59 Intake Total 840 Output Total 925 600 500 Balance -925 240 -500 Weight 195 lb 6.4 oz Intake: Oral 840 Output: Void Amount 775 600 500 Stool 150 Other: Meal Breakfast Percent of Meal Consumed 100% Urine Appearance Cloudy Clear Urine Color Bright Yellow Bright Yellow Urine Odor Strong Normal # Voids 1 Exam: General: In no acute distress, good spirits Chest: Clear, no rales Cardiovascular: Irregularly irregular Abdomen: Soft, nontender Neuro: Alert, oriented, nonfocal Medical - PN: Obj Da - Labs CBC & Chem 7: 04/25/19 04:00 04/25/19 04:00 Labs: Abnormal Lab Results 04/25/19 04/25/19 04/25/19 04:00 04:00 04:00 WBC 4.2 L RBC 3.44 L Hgb 10.3 L Hct 31.1 L [place] % (Auto) [place] # (Auto) Seg Neutrophils % Band Neutrophils % Monocytes % (Manual) 17 H RBC Morphology Abnorm A Hypochromasia Few A PT 27.6 H INR 2.6 H Sodium Carbon Dioxide 15 L Anion Gap BUN 62 H Creatinine 2.9 H Glucose Uric Acid 8.3 H Calcium 7.8 L Phosphorus NT-Pro-B Natriuret Pep Total Protein 5.6 L Triglycerides 226 H Urine Protein Ur Leukocyte Esterase Urine RBC Amorphous Crystals Stool Occult Bld Immuno 04/24/19 04/24/19 04/24/19 03:50 03:50 03:50 WBC RBC 3.84 L Hgb 11.6 L Hct 34.6 L [place] % (Auto) [place] # (Auto) Seg Neutrophils % 35 L Band Neutrophils % 24 H Monocytes % (Manual) 17 H RBC Morphology Hypochromasia PT 24.6 H INR 2.2 H Sodium 132 L Carbon Dioxide 12 L Anion Gap 17.0 H BUN 73 H Creatinine 3.2 H Glucose Uric Acid 8.8 H Calcium 8.1 L Phosphorus 4.6 H NT-Pro-B Natriuret Pep Total Protein Triglycerides 230 H Urine Protein Ur Leukocyte Esterase Urine RBC Amorphous Crystals Stool Occult Bld Immuno 04/23/19 04/23/19 04/23/19 15:17 14:15 12:20 WBC RBC Hgb Hct [place] % (Auto) [place] # (Auto) Seg Neutrophils % Band Neutrophils % Monocytes % (Manual) RBC Morphology Hypochromasia PT 22.5 H INR 2.0 H Sodium Carbon Dioxide Anion Gap BUN Creatinine Glucose Uric Acid Calcium Phosphorus NT-Pro-B Natriuret Pep Total Protein Triglycerides Urine Protein 30 A Ur Leukocyte Esterase 25 A Urine RBC 2 H Amorphous Crystals Few A Stool Occult Bld Immuno Positive A 04/23/19 04/23/19 12:20 12:20 WBC RBC Hgb Hct [place] % (Auto) 16.6 H [place] # (Auto) 1.8 H Seg Neutrophils % Band Neutrophils % Monocytes % (Manual) RBC Morphology Hypochromasia PT INR Sodium 130 L Carbon Dioxide 10 L* Anion Gap 21.0 H BUN 76 H Creatinine 3.5 H Glucose 126 H Uric Acid Calcium Phosphorus NT-Pro-B Natriuret Pep 2768.0 H Total Protein Triglycerides Urine Protein Ur Leukocyte Esterase Urine RBC Amorphous Crystals Stool Occult Bld Immuno Meds: Medications Acetaminophen (Tylenol) 650 mg PO Q4-6HP PRN PRN Reason: PAIN/FEVER > 101 Amlodipine Besylate (Norvasc) 5 mg PO DAILY [facility] Carvedilol (Coreg) 25 mg PO BIDCC [facility] Cyanocobalamin (Vitamin B-12) 1,000 mcg PO BID [facility] Stop: 04/28/19 09:01 Diagnostic Test (Pha) (Accu-Chek) 1 each FS ACHS [facility] Digoxin (Lanoxin) 125 mcg PO MoWeFr@1400 [facility] Folic Acid (Folic Acid) 1 mg PO DAILY [facility] Insulin Glargine (Lantus) 25 unit SQ HS [facility] Insulin Glargine (Lantus) 44 unit SQ DAILY [facility] Insulin Human Lispro (Humalog) 0 unit SQ ACHS [facility]; Protocol Iron Carb/Multivit/[place]/Folic Acid (Multivitamin W/Minerals) 1 tab PO DAILY [facility] Nitroglycerin (Nitrostat) 0.4 mg SL Q5M PRN PRN Reason: Chest Pain Omeprazole (Prilosec) 40 mg PO BIDAC [facility] Ondansetron HCl (Zofran) 4 mg IV Q4-6HP PRN PRN Reason: Nausea And Vomiting Potassium Chloride (Kdur) 20 meq PO QAMCC [facility] Pramipexole Dihydrochloride (Mirapex) 0.5 mg PO HS [facility] Sertraline HCl (Zoloft) 25 mg PO HS [facility] Sodium Chloride (Saline Flush) 10 ml IV Q8 [facility] Thiamine HCl (Vitamin B1) 100 mg PO DAILY [facility] Thyroid (Thyroid) 90 mg PO ACB [facility] Tramadol HCl (Ultram) 50 mg PO QIDP PRN PRN Reason: Pain Trazodone HCl (Desyrel) 50 mg PO HSP PRN PRN Reason: Insomnia Warfarin Sodium (Coumadin Per Pharmacy) 1 order PO UD [facility] Medical - PN: A/P - Time Spent With Patient Total time spent is greater than 50% in coordination of care (as documented) at patient's floor/unit and/or counseling patient: 25 - 35 minutes - Narrative A/P Narrative: Diarrhea with subsequent volume depletion. Improving and resolving. Cultures without growth. Possible viral syndrome. Plan: Banatrol added to regimen. Fluids have been saline locked. Continue with diet. Change from telemetry to medical/surgical status Acute on chronic renal failure. Improving. Creatinine 2.9, baseline closer to 2.5. Plan: Continue to monitor for 1 further day. Anion gap metabolic acidosis, secondary to bicarbonate loss from diarrhea and volume depletion. Resolved. Plan: Continue to monitor bicarb is not yet quite normalized. Hyponatremia due to diarrhea, possible spironolactone effect. Resolving. Plan: Continue to monitor. Resume spironolactone at discharge. Type 2 diabetes. Plan: Continue current insulin regimen. Atrial fibrillation. Currently rate controlled. Plan: Continue with warfarin, currently therapeutic INR, continue beta-yanely and digoxin. Hypertension. Antihypertensives have now been resumed. Plan: Follow renal function and hemodynamics back on her home regimen. Restless leg syndrome. Plan: Continue Mirapex. Anxiety disorder. Stable. Plan: Continue sertraline. CODE STATUS: Full code. Prophylaxis: Therapeutic anticoagulation with warfarin. Anticipate discharge in 24 hours. Medical - PN: Qual - VTE Deep Vein Thrombosis/Pulmonary Embolism Present on Admission: No
[2019-04-25] MEDS ORDERED: INSULIN GLARGINE, HUMAN 1 UNIT/0.01 ML SQ SCH (21:00)
[2019-04-25] MEDS ORDERED: PRAMIPEXOLE 0.25 MG TABLET PO SCH (21:00)
[2019-04-25] MEDS ORDERED: SERTRALINE 50 MG TABLET PO SCH (21:00)
[2019-04-26 06:03] LABS: Hematocrit 32.3 % (36.0-48.0); Hemoglobin 10.8 g/dL (12.0-15.0); Mean Corpuscular HGB Conc 33.3 g/dL (31.0-36.0); Mean Platelet Volume 8.2 fL (7.4-10.4); Platelet Count 194 K/mcL (140-440); RBC 3.59 M/mcL (4.00-5.20); Red Cell Distribution Width 14.4 % (11.5-14.5); WBC 6.8 K/mcL (4.5-11.0)
[2019-04-26 06:13] LABS: INR 2.8 (0.9-1.1); Prothrombin Time 29.3 sec (11.9-14.5)
[2019-04-26 06:30] LABS: ALT/SGPT 16 U/l (0-40); AST/SGOT 15 U/l (0-37); Albumin 3.6 gm/dL (3.2-5.2); Albumin/Globulin Ratio 1.4 (1.0-2.3); Alkaline Phosphatase 52 U/L (39-117); Bilirubin,Direct < 0.2 mg/dL (0.0-0.3); Bilirubin,Total 0.3 mg/dL (0.0-1.0); Blood Urea Nitrogen 51 mg/dl (8-23); Calcium 7.9 mg/dl (8.6-10.4); Carbon Dioxide 15 mmol/L (22-30); Chloride 108 mmol/L (96-108); Globulin 2.6 gm/dL (2.2-3.7); Glomerular Filtration Rate 17; Glucose 58 mg/dL (70-105); Lactate Dehydrogenase 204 U/L (94-250); Phosphorous 2.6 mg/dL (2.7-4.5); Triglycerides 202 mg/dl (<150); Uric Acid 7.5 mg/dL (2.5-8.0)
[2019-04-26] MEDS: 0.9 % SODIUM CHLORIDE 10 ML SYRINGE IV SCH (07:09)
[2019-04-26] MEDS ORDERED: THYROID, PORK 60 MG TABLET PO SCH (07:30)
[2019-04-26] MEDS ORDERED: OMEPRAZOLE 20 MG CAPSULE PO SCH (07:30)
[2019-04-26 07:44] LABS: Band Neutrophils % 5 % (0-10); Eosinophils % (Manual) 2 % (0-7); Hypochromasia 1+ (NONE SEEN); Lymphocytes % 22 % (15-49); Monocytes % (Manual) 15 % (1-12); Ovalocytes FEW (NONE SEEN); Platelet Estimate NORMAL (NORMAL); Poikilocytosis FEW (NONE SEEN); RBC Morphology ABNORM (NORMAL); Reactive Lymphocytes 4 % (0-2); Segmented Neutrophils % 52 % (38-78)
[2019-04-26] MEDS ORDERED: CARVEDILOL 12.5 MG TABLET PO SCH (08:00)
[2019-04-26] MEDS ORDERED: POTASSIUM CHLORIDE 10 MEQ TABLET PO SCH (08:00)
[2019-04-26] MEDS: CYANOCOBALAMIN (VITAMIN B-12) 500 MCG TABLET PO SCH (08:42)
[2019-04-26] MEDS ORDERED: INSULIN GLARGINE, HUMAN 1 UNIT/0.01 ML SQ SCH (09:00)
[2019-04-26] MEDS ORDERED: THIAMINE 100 MG TABLET PO SCH (09:00)
[2019-04-26] MEDS ORDERED: amLODIPine 5 MG TABLET PO SCH (09:00)
[2019-04-26] MEDS ORDERED: MULTIVIT,THER IRON,CA,FA & MIN 1 TABLET PO SCH (09:00)
[2019-04-26] MEDS ORDERED: FOLIC ACID 1 MG TABLET PO SCH (09:00)
[2019-04-26] MEDS: INSULIN LISPRO 1 UNIT/0.01 ML UNIT SQ SCH ×2 (11:14→11:24)
--- NOTE | 2019-04-26 11:15 | Discharge Summary ---
Medical - DS: Prov Patient information: Note initiated : 04/26/19 at 11:12 am Service Date, if different from initiated Date: [] Patient: Jo-Ann Millan 74 y/o F admitted on 04/23/19 for Nausea, Vomitting. Chief Complaint: [] Date of admission: 04/23/19 19:34 Discharge date: 04/26/19 Primary care physician: Osmar Garcia Admitting clinician: Rob Pfeiffer Consults: 04/23/19 Consult to Physician [CONS] Stat Comment: Consulting Provider: Rob Pfeiffer Reason For Exam: Physician to Consult Discharging clinician: [facility] - DS: Meds - Discharge Medications Active and Home Medications: Home Medications Insulin Glargine,Hum.rec.anlog [Lantus Solostar] 25 unit SQ HS 01/31/19 [History Confirmed 04/23/19 Last Taken Unknown] Insulin Lispro [HumaLOG] 1 unit SQ DAILY 01/31/19 [History Confirmed 04/23/19 Last Taken Unknown] Potassium Chloride [Kdur] 20 meq PO DAILY 01/31/19 [History Confirmed 04/23/19 Last Taken 04/21/19] Pramipexole Di-HCl [Mirapex] 0.5 mg PO HS 01/31/19 [History Confirmed 04/23/19 Last Taken Unknown] Spironolactone [Aldactone] 50 mg PO QID 01/31/19 [History Confirmed 04/23/19 Last Taken 04/23/19] Torsemide [Demadex] 20 mg PO BID 01/31/19 [History Confirmed 04/23/19 Last Taken 04/21/19] Warfarin [Coumadin] 5 mg PO DAILY 01/31/19 [History Confirmed 04/23/19 Last Take n 04/22/19] Calcium Gluconate 500 mg PO BID 04/23/19 [History Confirmed 04/23/19 Last Taken Unknown] Carvedilol [Coreg] 50 mg PO DAILY 04/23/19 [History Confirmed 04/23/19 Last Taken Unknown] Digoxin [Lanoxin] 125 mcg PO MOWEFR 04/23/19 [History Confirmed 04/23/19 Last Taken Unknown] Insulin Glargine, Human [Lantus] 44 units SUB-Q AC 04/23/19 [History Confirmed 04/23/19 Last Taken Unknown] Multivit-Min/Folic Acid/Biotin [Women Multivit W-Biotin Gummy] 1 tab PO DAILY 04/23/19 [History Confirmed 04/23/19 Last Taken 04/21/19] Nitroglycerin [Nitrostat] 0.4 mg SL Q5M PRN 04/23/19 [History Confirmed 04/23/19 Last Taken Unknown] Nystatin [Kenalog] 1 dose TOPICAL BID 04/23/19 [History Confirmed 04/23/19 Last Taken Unknown] [place]-3/Dha/Epa/Fish Oil [[facility] Fish Oil 1,000 mg Softgel] 1 each PO BID 04/23/19 [History Confirmed 04/23/19 Last Taken Unknown] Omeprazole 40 mg PO BID 04/23/19 [History Confirmed 04/23/19 Last Taken Unknown] Pramipexole Di-HCl [Pramipexole Dihydrochloride] 0.5 mg PO HS 04/23/19 [History Confirmed 04/23/19 Last Taken Unknown] Sertraline HCl [Zoloft] 25 mg PO HS 04/23/19 [History Confirmed 04/23/19 Last Taken Unknown] Thyroid,Pork [[place] Thyroid] 90 mg PO DAILY 04/23/19 [History Confirmed 04/23/19 Last Taken Unknown] amLODIPine BESYLATE [Amlodipine Besylate] 5 mg PO DAILY 04/23/19 [History Confirmed 04/23/19 Last Taken Unknown] traMADol HCL [Ultram] 50 mg PO QID PRN 04/23/19 [History Confirmed 04/23/19 Last Taken Unknown] Medical - DS: Hosp Hospital Course: Ms. Millan is a 74 year old F with a history of atrial fibrillation/diabetes and hypertension who presents to the ER with 5 days onset of profuse watery diarrhea without associated cramps, fever or blood. Patient denies any precipitating events or sick contacts. Over the last 3 days she has had multiple stools over 15-20 a day. She has become extremely weak and unable to function. With increasing concern she was brought in to [facility] ER. Initial work-up was consistent with severe anion gap acidosis/hyponatremia and volume depletion, elevated creatinine at 3.5. After initial resuscitation hospitalist service was consulted. At the time of evaluation patient is alert and oriented. She was able to answer most of the questions. She denies changes in medication, consumption of uncooked meat or seafood. She further denies recent or prior episodes of similar symptoms or history of inflammatory bowel disease. She also denies antibiotic use. 04/24-patient remarkably better. Improvement in diarrhea. No abdominal pain fever overnight hemodynamic stability. Improving renal function. White count downtrending with 24% bands. INR 2.2 on Coumadin. Telemetry atrial fibrillation rate controlled. Multiple family members at bedside. Discussed t reatment plan with patient and family. Stools more formed. Sodium 132, CO2 improved to 12 with downtrending anion gap. Creatinine downtrending from 3.5- 3.2. 9/1patient feeling much better. Very minimal nausea at the start of the meal, then resolves. Appetite is good. Diarrhea is improving. Creatinine down to 2.9. Anion gap is closed. Telemetry without significant alarms. 9/2patient eating well, feels well. Without IV fluids, her renal function has continued to normalize and she remains without acidosis. Stable for discharge to home. We will have her hold diuretic for another day, resuming on Friday. Discharge diagnosis: Viral gastroenteritis Secondary discharge diagnosis: Acute on chronic renal failure. Improving. Creatinine 2.7 at discharge, baseline closer to 2.5. Anion gap metabolic acidosis, secondary to bicarbonate loss from diarrhea and volume depletion. Resolved. Hyponatremia due to diarrhea. Resolving. Type 2 diabetes. Atrial fibrillation. Rate controlled, on warfarin for stroke prophylaxis. Hypertension. Antihypertensives resumed and tolerated prior to discharge. Restless leg syndrome, on Mirapex. Anxiety disorder. - Time Spent with Patient Total time spent providing and/or coordinating discharge services: Greater than 30 minutes Medical - DS: Exam - Constitutional Vitals: Vital Signs Temp Pulse Pulse Resp BP BP Pulse Ox 04/26/19 08:00 97.9 F 64 18 145/75 97 04/26/19 04:27 97.6 F 60 16 160/77 04/25/19 23:20 97.7 F 69 20 148/71 97 04/25/19 19:00 97.3 F 72 20 124/66 04/25/19 15:50 97.1 F 16 151/72 98 04/25/19 12:00 98.1 F 20 150/76 98 Intake and Output 04/25/19 04/26/19 04/26/19 21:59 05:59 13:59 Intake Total 240 240 590 Output Total 163 566 3702 Balance -660 -610 -410 Intake: Oral 240 240 590 Output: Void Amount [phone] Other: Meal Breakfast Percent of Meal Consumed 75% Urine Appearance Clear Clear Urine Color Bright Yellow Bright Yellow Straw Urine Odor Normal Normal Normal Weight 198 lb 4.8 oz Additional comments: General: Sitting up in chair in no acute distress Chest: Clear Cardiovascular: Irregular Abdomen: Soft, nontender, active bowel sounds Neuro: Alert, oriented, nonfocal Medical - DS: Data Labs on day of discharge: Labs from last 24 hours 04/26/19 04/26/19 04/26/19 04:26 04:26 04:26 WBC 6.8 RBC 3.59 L Hgb 10.8 L Hct 32.3 L MCV 90.0 MCH 30.0 MCHC 33.3 RDW 14.4 Plt Count 194 MPV 8.2 Total Counted 100 Seg Neutrophils % 52 Band Neutrophils % 5 Lymphocytes % 22 Monocytes % (Manual) 15 H Eosinophils % (Manual) 2 Reactive Lymphocytes 4 H Platelet Estimate Normal RBC Morphology Abnorm A Hypochromasia 1+ A Poikilocytosis Few A Ovalocytes Few A PT 29.3 H INR 2.8 H Sodium 135 Potassium 4.3 Chloride 108 Carbon Dioxide 15 L Anion Gap 12.0 BUN 51 H Creatinine 2.7 H GFR Calculation 17 Glucose 58 L Uric Acid 7.5 Calcium 7.9 L Phosphorus 2.6 L Magnesium 1.9 Total Bilirubin 0.3 Direct Bilirubin < 0.2 GGT 29 AST 15 ALT 16 Alkaline Phosphatase 52 Lactate Dehydrogenase 204 Total Protein 6.2 Albumin 3.6 Globulin 2.6 Albumin/Globulin Ratio 1.4 Triglycerides 202 H - Additional Comments Date of Service: 04/23/19 Procedure(s): XR chest 2V IMPRESSION: Normal chest. Medical - DS: A/P - Patient/Caregiver Discharge Instructions Activity: increase activity as tolerated Diet: Consistent Carbohydrate Additional Instructions: Hold your torsemide for the next day, resume on the morning of 04/28. - Follow up Plan Follow up with: Osmar Garcia MD [Primary Care Provider] - (7-10 days) Disposition: Home, Self-Care Prognosis: Good Rehab Potential: Good Overall status at discharge: patient is back to baseline Medical - DS: Qual - VTE Deep Vein Thrombosis/Pulmonary Embolism Present on Admission: No
[2019-04-26] MEDS ORDERED: WARFARIN 1 MG TABLET PO ONE (14:00)
[2019-04-26] MEDS ORDERED: DIGOXIN 125 MCG TABLET PO SCH ×2 (14:00)
== END 2019-04-26 13:04 | disposition home or self-care (01) | DRG 392 ==
LOC: ED 12:06 → ICU 19:34 → MEDSUR 04-25 18:05
PROVIDERS: ADMIT Internal Medicine; ATTEND Internal Medicine